=== PATIENT | female | born 1950 | race Caucasian/White ===

== ENCOUNTER → 2019-01-29 | Outpatient (CLI) | payer MEDICARE ==
[~2019-01-29] MED LIST: ACYC400; CYCL10; ESTR1; HYDACE5 PO; HYDCHL25; IBUP600 PO; IBUP800 PO; LEVFLO500; LEVSOD100; LEVSOD75; LISI10 PO; MELO7.5; METF500; METF500C; METO100; METO100ER; NAPR500 PO; OMEP20ER; OXYACE5T PO; PROM25 PO; RXCYCL10 PO
== END ==
LOC: LAB SHORT 12:07 → LAB EV 12:07
DX: N39.0 Urinary tract infection, site not specified (principal)
CPT/HCPCS: 87086

== ENCOUNTER → 2019-10-25 | Outpatient (CLI) | payer MEDICARE ==
[2019-10-26 17:42] LABS: Campylobacter Sp Not Detected (NOT DETECT)
[2019-10-26 17:43] LABS: Adenovirus F 40/41 Not Detected (NOT DETECT); Astrovirus Not Detected (NOT DETECT); Cryptosporidium Not Detected (NOT DETECT); Cyclospora Cayetanensis Not Detected (NOT DETECT); E. Coli O157 Not Detected (NOT DETECT); Entamoeba Histolytica Not Detected (NOT DETECT); Enteroaggregative E. coli-EAEC Not Detected (NOT DETECT); Enteropathogenic E. coli-EPEC Not Detected (NOT DETECT); Enterotoxigenic E. coli-ETEC Not Detected (NOT DETECT); Giardia Lamblia Not Detected (NOT DETECT); Norovirus GI/GII Not Detected (NOT DETECT); Plesiomonas Shigelloides Not Detected (NOT DETECT); Rotavirus A Not Detected (NOT DETECT); Salmonella Sp Not Detected (NOT DETECT); Sapovirus Not Detected (NOT DETECT); Shiga Toxin-prod E. coli-STEC Not Detected (NOT DETECT); Shigella/Enteroin E. coli-EIEC Not Detected (NOT DETECT); Vibrio Cholerae Not Detected (NOT DETECT); Vibrio Sp Not Detected (NOT DETECT); Yersinia Enterocolitica Not Detected (NOT DETECT)
[2019-10-27 07:00] LABS: Stool Occult Bld Immuno 1 Negative (NEGATIVE)
== END ==
LOC: LAB EV 21:20
PROVIDERS: Nurse Practitioner Family
DX: R19.7 Diarrhea, unspecified (principal)
CPT/HCPCS: 0097U; 82274

== ENCOUNTER 2022-01-23 05:57 | Day surgery (SDC) | payer MEDICARE ==
[~2022-01-23] VITALS: Ht 160 cm; Wt 90.5 kg
[~2022-01-23 05:57] MED LIST changes: +ACYC400 PO; +ESTRADIOL0.5 MG PO; +EUTHYROX125 MC1 PO; +GABA300 PO; +GLIP10 PO; +HYDCHL25 PO; +LISI20 PO; -METF500; +METF500 PO; -METO100ER; +METO100ER PO; +OMEP20ER PO; +OZEMPIC1 MG/0.72 SC; +PREDNISONE ACETATE LEFTEYE; +ZIRGAN5 GM LEFTEYE; +ZOCOR20 MG PO
--- NOTE | 2022-01-23 06:46 | NUR ---
pt admitted to [facility]. agrees with planned surgery. lung sounds clear.
--- NOTE | 2022-01-23 10:37 | NUR ---
POD 0 LEFT TOTAL KNEE PATIENT CAME BACK TODAY 01/23/22 AT 1020. PATIENT IS ALERT AND ORIENTED X4. PATIENT HAS A SLIGHTLY LOWER BP BUT HAS FLUIDS RUNNING. OTHERWISE HER VS ARE WNL AND ON RA. PATIENT DENIES PAIN AT THIS TIME SINCE SHE HAD A SPINAL DONE DURING PROCEDURE. PATIENT IS AT DERMATOME L1 FOR HER SPINAL. HER LEFT KNEE HAS AN JERAMIE WRAP AND POLAR PACK IN PLACE THAT IS C/D/I. SHE IS TOLERATING SMALL AMOUNTS OF PO INTAKE AT THIS TIME. CALL LIGHT WITHIN REACH. PATIENTS FAMILY IS AT BEDSIDE.
--- NOTE | 2022-01-23 17:21 | NUR ---
SHIFT SUMMARY: POD 0 LEFT TOTAL KNEE NO SIGNIFICANT CHANGES SINCE POST OP. PATIENT WAS ABLE TO WORK WITH PT TODAY AND IS A SBA WITH FWW AND GAIT BELT. PATIENT IS VOIDING AND TOLERATING PO INTAKE. PAIN IS MANAGED WITH 1 JOSSIE AT THIS TIME AND IV TORADOL. THE PLAN IS TO WORK WITH PT AGAIN TOMORROW AND POSSIBLE DISCHARGE HOME TOMORROW.
--- NOTE | 2022-01-24 03:17 | NUR ---
PT IS A&OX4, AMBULATES TO BR WITH FWW AND IS ABLE TO MAKE NEED KNOWN. POST OP DAY 1 FOR L TKA. PAIN CONTROLLED WITH JOSSIE 5MG. PT ABLE TO VIOD THIS SHIFT WITH NO ISSUES. TOLERATING REGULAR DIET AND PO FLUIDS. POSSIBLE D/C THIS AM. WILL CONTINUE TO MONITOR THIS PT
[2022-01-24 03:46] LABS: BASOPHILS ABSOLUTE AUTO 0.01 K/mm3 (0.00-0.23); BASOPHILS PERCENT AUTO 0 % (0-2); EOSINOPHILS PERCENT AUTO 0 % (0-6); Hemoglobin 10.6 g/dL (11.5-16.0); IMMATURE GRAN ABSOLUTE AUTO 0.04 K/mm3 (0.00-0.10); IMMATURE GRAN PERCENT AUTO 0 % (0-1); LYMPHOCYTES PERCENT AUTO 10 % (21-46); MONOCYTES PERCENT AUTO 4 % (4-13); Mean Corpuscular HGB 30.2 pg (26.0-34.0); Mean Corpuscular HGB Conc 33.1 g/dL (31.5-36.5); Mean Corpuscular Volume 91 fL (80-100); Mean Platelet Volume 10.6 fL (9.1-12.4); NEUTROPHILS ABSOLUTE AUTO 9.78 K/mm3 (1.96-9.15); NEUTROPHILS PERCENT AUTO 86 % (41-73); Platelet Count 236 K/mm3 (150-400); RDW Coefficient Variation 13.1 % (11.7-14.2); RDW Standard Deviation 42.6 fL (35.1-46.3); Red Blood Cell Count 3.51 M/mm3 (3.80-5.20); White Blood Cell Count 11.43 K/mm3 (4.00-11.30)
[2022-01-24 04:02] LABS: Bun/Creatinine Ratio 20.5 (12.0-20.0); Creatinine, Blood 1.12 mg/dL (0.40-1.00); Potassium, Blood 4.5 mmol/L (3.5-5.5)
[2022-01-24] MEDS ORDERED: ASPI81CH PO (09:58)
[2022-01-24] MEDS ORDERED: Percocet 5-3251 EACH PO (09:58)
--- NOTE | 2022-01-24 10:59 | NUR ---
DISCHARGE NOTE: PATIENT AND DAUGHTER WERE EDUCATED ON DISCHARGE INSTRUCTIONS. BOTH VERBALIZED UNDERSTANDING OF INSTRUCTIONS. HARD PERSCRIPTIONS ARE IN INSTRUCTIONS FOLDER. PATIENT IS ALERT AND ORIENTED X4. VS ARE WNL AND IS ON RA. PAIN IS MANAGED WITH PO PAIN MEDS. LEFT KNEE HAS JERAMIE WRAP THAT IS C/D/I. DENIES NUMBNESS AND TINGLING. SHE IS A SBA WITH FWW AND GAIT BELT. PATIENT IS DRESSED AND ITEMS IN THE ROOM GATHERED. AWAITING FOR PATIENTS RIDE TO TAKE HER HOME.
--- NOTE | 2022-01-24 12:02 | NUR ---
PATIENT JUST WAS WHEELCHAIRED OUT TO CAR TO BE TAKEN HOME.
--- NOTE | 2022-01-24 12:07 | NUR ---
Pt. is sitting up and waiting for ride having been discharged. Pt. is known to this babysitter. Pts. daughter is present. Re-established rapport. Pt. has no concerns. Prayed for Pt. to have a full and complete recovery. Pt. and daughter verbalized gratitude for the spiritual care visit.
== END 2022-01-24 12:01 | disposition home or self-care (01) ==
LOC: ORSCMMR 05:57 → ORD 07:30 → ORSCMMR 07:30 → SURS 10:04 → ORSCMMR 01-24 12:01
PROVIDERS: Orthopaedic Surgery
PROC: 0SRD0JA Replacement of Left Knee Joint with Synthetic Substitute, Uncemented, Open Approach (ICD-10-PCS; principal; 2022-01-23 07:30)
DX: M17.0 Bilateral primary osteoarthritis of knee (principal); M10.9 Gout, unspecified; E11.22 Type 2 diabetes mellitus with diabetic chronic kidney disease; I12.9 Hypertensive chronic kidney disease with stage 1 through stage 4 chronic kidney disease, or unspecified chronic kidney disease; N18.9 Chronic kidney disease, unspecified; K21.9 Gastro-esophageal reflux disease without esophagitis; E78.5 Hyperlipidemia, unspecified; Z79.84 Long term (current) use of oral hypoglycemic drugs; Z79.899 Other long term (current) drug therapy; E66.9 Obesity, unspecified; Z68.35 Body mass index [BMI] 35.0-35.9, adult
CPT/HCPCS: 36415; 73560-LT; 80048; 82947; 85025; 97110; 97116; 97161; 97530; A9270; C1776; J0171; J0690; J0735; J1100; J1170; J1815; J1885; J2250; J2370; J2405; J2704; J2795; J3010; J7120

== ENCOUNTER 2022-04-24 09:32 | Day surgery (SDC) | payer MEDICARE ==
[~2022-04-24] VITALS: Ht 160 cm; Wt 83.1 kg
[~2022-04-24 09:32] MED LIST changes: +ASPI81CH PO; +Percocet 5-3251 EACH PO
--- NOTE | 2022-04-24 15:34 | NUR ---
PATIENT ARRIVED TO UNIT VIA BED APPROX 1515. VSS ON RA, LUNGS CLEAR. AQUACEL, JERAMIE WRAP & POLAR PACK IN PLACE TO R KNEE, C/D/I. PATIENT UNABLE TO WIGGLE TOES AT THIS TIME, CAP REFILL WNL, PULSES STRONG. SENSATION TO MID THIGH. A&O X4. ORIENTED TO ROOM & CALL LIGHT.
--- NOTE | 2022-04-24 16:10 | NUR ---
04/24/22 1610 Tena Elmore VERIFICATIONS: EDIT CHART.
--- NOTE | 2022-04-24 18:05 | NUR ---
Pt. is awake in bed and welcomes my visit. Daughteris present. Pt. is pleasant and there is no visible sign of pain or nausea as there had been during her last knee replacement. Re-establish rapport, and explored issues of bhavesh and belief. Prayed with Pt. Pt. and daughter veerbalize gratitude for the spiritual care visit.
--- NOTE | 2022-04-24 18:41 | NUR ---
SHIFT SUMMARY NO ACUTE CHANGES SINCE ARRIVAL TO UNIT, VSS ON RA. PATIENT HAD SPINAL, DENIES PAIN, STILL NO SENSATION TO FEET, UNABLE TO WIGGLE TOES BUT "FEET TWITCH EVERY NOW AND THEN", PER PATIENT. TOLERATING PO DIET WELL, REPORTS SLIGHT NAUSEA AND REQUESTED MEDICATION "JUST TO BE SAFE". AWAITING POST OP VOID. CALLS APPROPRIATELY, WILL REPORT TO ONCOMING RN.
--- NOTE | 2022-04-25 04:37 | NUR ---
SHIFT SUMMARY NO ACUTE CHANGES. RIGHT KNEE DRESSING REMAINS CDI WITH ICE IN PLACE. UP WITH 1 SBA USING FWW + GB. 2 ROXICODONE/TYLENOL/TORADOL FOR PAIN MANAGEMENT. VOIDING SPONTANEOUSLY. CALL LIGHT WITHIN REACH.
[2022-04-25 04:49] LABS: BASOPHILS ABSOLUTE AUTO 0.01 K/mm3 (0.00-0.23); BASOPHILS PERCENT AUTO 0 % (0-2); EOSINOPHILS PERCENT AUTO 0 % (0-6); Hematocrit 32.4 % (33.0-51.0); Hemoglobin 10.7 g/dL (11.5-16.0); IMMATURE GRAN ABSOLUTE AUTO 0.04 K/mm3 (0.00-0.10); IMMATURE GRAN PERCENT AUTO 0 % (0-1); LYMPHOCYTES ABSOLUTE AUTO 1.05 K/mm3 (0.84-5.20); LYMPHOCYTES PERCENT AUTO 10 % (21-46); MONOCYTES ABSOLUTE AUTO 0.54 K/mm3 (0.16-1.47); MONOCYTES PERCENT AUTO 5 % (4-13); Mean Corpuscular HGB 29.8 pg (26.0-34.0); Mean Corpuscular Volume 90 fL (80-100); Mean Platelet Volume 11.3 fL (9.1-12.4); NEUTROPHILS ABSOLUTE AUTO 9.07 K/mm3 (1.96-9.15); NEUTROPHILS PERCENT AUTO 85 % (41-73); Platelet Count 190 K/mm3 (150-400); RDW Coefficient Variation 13.1 % (11.7-14.2); RDW Standard Deviation 43.3 fL (35.1-46.3); Red Blood Cell Count 3.59 M/mm3 (3.80-5.20); White Blood Cell Count 10.71 K/mm3 (4.00-11.30)
[2022-04-25 05:42] LABS: Bun/Creatinine Ratio 24.8 (12.0-20.0); Calcium, Blood 8.6 mg/dL (8.5-10.1); Creatinine, Blood 0.97 mg/dL (0.40-1.00); Potassium, Blood 4.4 mmol/L (3.5-5.5)
[2022-04-25] MEDS ORDERED: Percocet 5-3251 EACH PO (09:53)
[2022-04-25] MEDS ORDERED: ASPI81CH PO (09:53)
--- NOTE | 2022-04-25 10:40 | NUR ---
DISCHARGE PT HAS CLEARED THERAPY. PAIN WELL CONTROLLED. EATING, DRINKING, & VOIDING WELL. DRSGS, SCRIPT, & POLAR PACK SENT w/ PT. ESCORTED OUT VIA W/C.
== END 2022-04-25 10:40 | disposition home or self-care (01) ==
LOC: ORSCMMR 09:32 → SURS 15:16 → ORSCMMR 04-25 10:40 → SURS 04-25 10:40
PROVIDERS: Orthopaedic Surgery
PROC: 0SRC0JA Replacement of Right Knee Joint with Synthetic Substitute, Uncemented, Open Approach (ICD-10-PCS; principal; 2022-04-24 11:00)
DX: M17.11 Unilateral primary osteoarthritis, right knee (principal); Z96.652 Presence of left artificial knee joint; K21.9 Gastro-esophageal reflux disease without esophagitis; E78.5 Hyperlipidemia, unspecified; E11.22 Type 2 diabetes mellitus with diabetic chronic kidney disease; I12.9 Hypertensive chronic kidney disease with stage 1 through stage 4 chronic kidney disease, or unspecified chronic kidney disease; N18.9 Chronic kidney disease, unspecified; Z79.84 Long term (current) use of oral hypoglycemic drugs; Z79.899 Other long term (current) drug therapy
CPT/HCPCS: 36415; 73560-RT; 80048; 82947; 85025; 97110; 97161; A9270; C1776; J0171; J0690; J0735; J1100; J1815; J1885; J2250; J2405; J2704; J2795; J3010; J7120

== ENCOUNTER → 2022-09-17 | Outpatient (CLI) | payer MEDICARE | END | disposition home or self-care (01) | LOC: LAB SHORT 07:43 | DX: B35.1 Tinea unguium (principal) | CPT/HCPCS: 88305; 88312 ==

== ENCOUNTER 2023-05-09 13:18 | Emergency (ER) | payer MEDICARE ==
[~2023-05-09] VITALS: Ht 160 cm; Wt 78.9 kg
[2023-05-09 13:37] VITALS: BP 149/85
[2023-05-09 14:29] LABS: BASOPHILS ABSOLUTE AUTO 0.04 K/mm3 (0.00-0.23); BASOPHILS PERCENT AUTO 0 % (0-2); EOSINOPHILS ABSOLUTE AUTO 0.03 K/mm3 (0.00-0.68); EOSINOPHILS PERCENT AUTO 0 % (0-6); Hemoglobin 13.7 g/dL (11.5-16.0); IMMATURE GRAN ABSOLUTE AUTO 0.05 K/mm3 (0.00-0.10); IMMATURE GRAN PERCENT AUTO 0 % (0-1); LYMPHOCYTES ABSOLUTE AUTO 1.86 K/mm3 (0.84-5.20); LYMPHOCYTES PERCENT AUTO 16 % (21-46); MONOCYTES ABSOLUTE AUTO 1.04 K/mm3 (0.16-1.47); MONOCYTES PERCENT AUTO 9 % (4-13); Mean Corpuscular HGB 31.1 pg (26.0-34.0); Mean Corpuscular HGB Conc 34.3 g/dL (31.5-36.5); Mean Corpuscular Volume 91 fL (80-100); Mean Platelet Volume 10.5 fL (9.1-12.4); NEUTROPHILS ABSOLUTE AUTO 8.69 K/mm3 (1.96-9.15); NEUTROPHILS PERCENT AUTO 74 % (41-73); Platelet Count 273 K/mm3 (150-400); RDW Coefficient Variation 11.6 % (11.7-14.2); RDW Standard Deviation 38.8 fL (35.1-46.3); White Blood Cell Count 11.71 K/mm3 (4.00-11.30)
[2023-05-09 14:47] LABS: Albumin, Blood 3.4 g/dL (3.4-5.0); Albumin/Globulin Ratio 0.7 (0.8-1.8); Bilirubin, Total 0.4 mg/dL (0.1-1.0); Bun/Creatinine Ratio 18.8 (12.0-20.0); Calcium, Blood 9.2 mg/dL (8.5-10.1); Creatinine, Blood 0.64 mg/dL (0.40-1.00); Globulin, Blood 4.7 g/dL (2.2-4.0); Potassium, Blood 3.9 mmol/L (3.5-5.5); Total Protein, Blood 8.1 g/dL (6.4-8.2)
[2023-05-09] MEDS ORDERED: Naprosyn500 MG PO (18:06)
[2023-05-09] MEDS ORDERED: Norco 5-325 Ta1 EACH PO (18:06)
== END 2023-05-09 19:24 | disposition home or self-care (01) ==
LOC: ER 13:18
PROVIDERS: Physician Assistant
DX: M10.9 Gout, unspecified (principal); R07.9 Chest pain, unspecified; I10 Essential (primary) hypertension; E11.9 Type 2 diabetes mellitus without complications; E07.9 Disorder of thyroid, unspecified; Z79.84 Long term (current) use of oral hypoglycemic drugs; Z79.899 Other long term (current) drug therapy
CPT/HCPCS: 71045; 71260; 80053; 84484; 85025; 85379; 93005; 93010; 96374-59; 99284-25; A9270; J1885; Q9967

== ENCOUNTER 2023-06-14 09:05 | Day surgery (SDC) | payer MEDICARE ==
[~2023-06-14 09:05] MED LIST changes: -LISI20 PO; +LISI5 PO; +Naprosyn500 MG PO; +Norco 5-325 Ta1 EACH PO
[2023-06-14 14:47] VITALS: BP 151/63
[2023-06-14] MEDS ORDERED: METFORMIN HCL500 M3 PO (17:19)
[2023-06-14] MEDS ORDERED: METO100 PO (17:20)
[2023-06-14] MEDS ORDERED: CENTRUM SILVER1 EAC2 PO (17:21)
[2023-06-14] MEDS ORDERED: ALLO100 PO (17:21)
[2023-06-14] MEDS ORDERED: FURO20 PO (17:22)
[2023-06-14] MEDS ORDERED: PRED FORTE5 ML LEFTEYE (17:22)
[2023-06-14] MEDS ORDERED: FLUTICASONE P15.8 M1 (17:24)
== END 2023-06-14 16:40 | disposition home or self-care (01) ==
LOC: ATC 09:05
DX: E83.42 Hypomagnesemia (principal); I12.9 Hypertensive chronic kidney disease with stage 1 through stage 4 chronic kidney disease, or unspecified chronic kidney disease; N18.32 Chronic kidney disease, stage 3b; K21.9 Gastro-esophageal reflux disease without esophagitis; E03.9 Hypothyroidism, unspecified
CPT/HCPCS: 96365; 96366; J3475

== ENCOUNTER 2023-06-20 01:04 | Day surgery (SDC) | payer MEDICARE ==
[~2023-06-20 01:04] MED LIST changes: +ALLO100 PO; +CENTRUM SILVER1 EAC2 PO; +FLUTICASONE P15.8 M1; +FURO20 PO; +METFORMIN HCL500 M3 PO; +METO100 PO; +PRED FORTE5 ML LEFTEYE
[2023-06-20 14:30] VITALS: BP 143/66
== END 2023-06-20 16:32 | disposition home or self-care (01) ==
LOC: ATC 01:04
DX: E83.42 Hypomagnesemia (principal); K21.9 Gastro-esophageal reflux disease without esophagitis; E03.9 Hypothyroidism, unspecified; E11.40 Type 2 diabetes mellitus with diabetic neuropathy, unspecified; E11.22 Type 2 diabetes mellitus with diabetic chronic kidney disease; N18.32 Chronic kidney disease, stage 3b; I12.9 Hypertensive chronic kidney disease with stage 1 through stage 4 chronic kidney disease, or unspecified chronic kidney disease
CPT/HCPCS: 96365; 96366; J3475

== ENCOUNTER → 2024-05-13 | Outpatient (CLI) | payer MEDICARE ==
[~2024-05-13] MED LIST changes: +BACTRIM DS TAB1 EAC1 PO; +CEPH500 PO; +FAMO40 PO; +LEVOTHYROXINE125 MC9 PO; +ONDA4 PO; +OZEMPIC1 MG/0.72 INJ
== END | disposition home or self-care (01) ==
LOC: LAB 13:30 → LAB SHORT 13:30
DX: R30.0 Dysuria (principal)
CPT/HCPCS: 87077; 87086; 87186

== ENCOUNTER → 2024-06-29 | Outpatient (CLI) | payer MEDICARE | LOC: LAB 13:09 → LAB SHORT 13:09 | DX: R30.0 Dysuria (principal) | CPT/HCPCS: 87077; 87086; 87186 ==

== ENCOUNTER 2024-08-27 13:17 | Emergency (ER) | payer MEDICARE ==
[~2024-08-27] VITALS: Ht 157.5 cm; Wt 83.9 kg
[2024-08-27 14:21] LABS: Albumin, Blood 3.7 g/dL (3.4-5.0); Bilirubin, Total 0.4 mg/dL (0.1-1.0); Bun/Creatinine Ratio 21.9 (12.0-20.0); Calcium, Blood 9.1 mg/dL (8.5-10.1); Creatinine, Blood 0.78 mg/dL (0.40-1.00); Globulin, Blood 3.6 g/dL (2.2-4.0); Potassium, Blood 4.3 mmol/L (3.5-5.5); Total Protein, Blood 7.3 g/dL (6.4-8.2)
[2024-08-27 14:25] LABS: BASOPHILS ABSOLUTE AUTO 0.05 K/mm3 (0.00-0.23); BASOPHILS PERCENT AUTO 1 % (0-2); EOSINOPHILS ABSOLUTE AUTO 0.18 K/mm3 (0.00-0.68); EOSINOPHILS PERCENT AUTO 3 % (0-6); Hematocrit 38.5 % (33.0-51.0); IMMATURE GRAN ABSOLUTE AUTO 0.01 K/mm3 (0.00-0.10); IMMATURE GRAN PERCENT AUTO 0 % (0-1); LYMPHOCYTES ABSOLUTE AUTO 1.79 K/mm3 (0.84-5.20); LYMPHOCYTES PERCENT AUTO 30 % (21-46); MONOCYTES ABSOLUTE AUTO 0.46 K/mm3 (0.16-1.47); MONOCYTES PERCENT AUTO 8 % (4-13); Mean Corpuscular HGB 30.9 pg (26.0-34.0); Mean Corpuscular HGB Conc 33.8 g/dL (31.5-36.5); Mean Corpuscular Volume 91 fL (80-100); Mean Platelet Volume 10.9 fL (9.1-12.4); NEUTROPHILS ABSOLUTE AUTO 3.48 K/mm3 (1.96-9.15); NEUTROPHILS PERCENT AUTO 58 % (41-73); Platelet Count 232 K/mm3 (150-400); RDW Coefficient Variation 12.7 % (11.7-14.2); RDW Standard Deviation 42.6 fL (35.1-46.3); Red Blood Cell Count 4.21 M/mm3 (3.80-5.20); White Blood Cell Count 5.97 K/mm3 (4.00-11.30)
[2024-08-27 17:01] VITALS: BP 180/90
[2024-08-27] MEDS ORDERED: Ketorolac Tromethamine 15mg Vial IV ONE (17:45)
[2024-08-27] MEDS ORDERED: NS 1,000 ML IV SCH (17:45)
[2024-08-27 17:59] LABS: Source, Urine Clean Catch
[2024-08-27 18:09] LABS: Appearance, Urine Clear (Clear); Bilirubin, Urine Neg (Neg); Blood, Urine Neg (Neg); Color, Urine Yellow (P-Yellow); Glucose Qualitative, Urine Neg (Neg); Ketones, Urine Neg (Neg); Leukocyte Esterase, Urine 2+ (Neg); Nitrite, Urine Neg (Neg); Protein, Urine 1+ (Neg); Urobilinogen, Urine NORM (Normal); pH, Urine 6.5 (5.0-8.0)
[2024-08-27 18:26] LABS: Bacteria Many /hpf; Red Blood Cells, Urine 0-2 /hpf (0-2); Squamous Epithelial Cells Few /hpf (Few)
[2024-08-27] MEDS ORDERED: Phenazopyridine HCl 100 MG Tab PO ONE (18:40)
[2024-08-27] MEDS ORDERED: Trimethoprim/Sulfamethoxazole DS Tab PO ONE (18:40)
[2024-08-27] MEDS ORDERED: CEPH500 PO (18:42)
[2024-08-27] MEDS ORDERED: Pyridium100 MG PO (18:43)
[2024-08-27] MEDS ORDERED: Cephalexin Monohydrate 500 MG Cap PO ONE (18:45)
== END 2024-08-27 19:02 | disposition home or self-care (01) ==
LOC: ER 13:17
PROVIDERS: Physician Assistant; Student in an Organized Health Care Education/Training Program
DX: N39.0 Urinary tract infection, site not specified (principal); I10 Essential (primary) hypertension; E11.9 Type 2 diabetes mellitus without complications; Z79.84 Long term (current) use of oral hypoglycemic drugs; Z79.899 Other long term (current) drug therapy
CPT/HCPCS: 71046; 80053; 81001; 83880; 84484; 85025; 93005; 93010; 96361; 96374; 99284-25; A9270; J1885; J7030

== ENCOUNTER 2024-09-14 15:30 | Observation (INO) | payer MEDICARE ==
[~2024-09-14] VITALS: Ht 157.5 cm; Wt 86.2 kg
[~2024-09-14 15:30] MED LIST changes: +ATOR40TA PO; +Prinivil10 MG PO; +Pyridium100 MG PO
[2024-09-14 16:17] LABS: BASOPHILS ABSOLUTE AUTO 0.05 K/mm3 (0.00-0.23); BASOPHILS PERCENT AUTO 1 % (0-2); EOSINOPHILS ABSOLUTE AUTO 0.14 K/mm3 (0.00-0.68); EOSINOPHILS PERCENT AUTO 2 % (0-6); Hematocrit 41.2 % (33.0-51.0); Hemoglobin 13.8 g/dL (11.5-16.0); IMMATURE GRAN ABSOLUTE AUTO 0.03 K/mm3 (0.00-0.10); IMMATURE GRAN PERCENT AUTO 0 % (0-1); LYMPHOCYTES ABSOLUTE AUTO 2.14 K/mm3 (0.84-5.20); LYMPHOCYTES PERCENT AUTO 29 % (21-46); MONOCYTES ABSOLUTE AUTO 0.45 K/mm3 (0.16-1.47); MONOCYTES PERCENT AUTO 6 % (4-13); Mean Corpuscular HGB 30.8 pg (26.0-34.0); Mean Corpuscular HGB Conc 33.5 g/dL (31.5-36.5); Mean Corpuscular Volume 92 fL (80-100); Mean Platelet Volume 10.7 fL (9.1-12.4); NEUTROPHILS ABSOLUTE AUTO 4.66 K/mm3 (1.96-9.15); NEUTROPHILS PERCENT AUTO 62 % (41-73); Platelet Count 238 K/mm3 (150-400); RDW Coefficient Variation 12.5 % (11.7-14.2); RDW Standard Deviation 42.5 fL (35.1-46.3); Red Blood Cell Count 4.48 M/mm3 (3.80-5.20); White Blood Cell Count 7.47 K/mm3 (4.00-11.30)
[2024-09-14 16:55] LABS: Albumin, Blood 3.9 g/dL (3.4-5.0); Bilirubin, Total 0.3 mg/dL (0.1-1.0); Bun/Creatinine Ratio 30.8 (12.0-20.0); Calcium, Blood 9.7 mg/dL (8.5-10.1); Creatinine, Blood 0.91 mg/dL (0.40-1.00); Total Protein, Blood 7.9 g/dL (6.4-8.2)
[2024-09-14] MEDS ORDERED: DiphenhydrAMINE HCl 50 MG/ML 1ML Vial IV ONE (17:40)
[2024-09-14] MEDS ORDERED: Labetalol HCL 5 MG/ML 4ML Injection (Single Dose) IV ONE (17:40)
[2024-09-14] MEDS ORDERED: NS 1,000 ML IV SCH (17:40)
[2024-09-14] MEDS ORDERED: Metoclopramide HCl 5MG / ML 2ML Vial IV ONE (17:40)
[2024-09-14 17:57] LABS: Magnesium, Blood 1.4 mg/dL (1.6-2.4); Phosphorus, Blood 3.2 mg/dL (2.5-4.9)
[2024-09-14 19:58] LABS: Source, Urine Clean Catch
[2024-09-14] MEDS ORDERED: Ketorolac Tromethamine 15mg Vial IV ONE (20:00)
[2024-09-14 20:01] LABS: Appearance, Urine Clear (Clear); Bilirubin, Urine Neg (Neg); Blood, Urine Neg (Neg); Glucose Qualitative, Urine Neg (Neg); Ketones, Urine Neg (Neg); Leukocyte Esterase, Urine 1+ (Neg); Nitrite, Urine Neg (Neg); Protein, Urine Neg (Neg); Specific Gravity, Urine 1.005 (1.003-1.022); Urobilinogen, Urine NORM (Normal)
[2024-09-14 20:07] LABS: Color, Urine Pale Yellow (P-Yellow)
[2024-09-14 20:08] LABS: Bacteria Few /hpf; Red Blood Cells, Urine 0-2 /hpf (0-2); Squamous Epithelial Cells Few /hpf (Few)
[2024-09-14] MEDS ORDERED: Metoprolol Tartrate 50 MG Tab PO ONE (20:10)
[2024-09-14] MEDS ORDERED: Lisinopril 5 MG Tab PO ONE (20:10)
[2024-09-14] MEDS ORDERED: FLU VACC TS2024-25(6MOS UP)/PF 45 MCG/0.5 ML SYRINGE IM ONE (22:10)
[2024-09-14] MEDS ORDERED: Ondansetron HCl 2 MG / ML 2ML Vial IV PRN (22:15)
[2024-09-14] MEDS ORDERED: Acetaminophen 325 MG TABLET PO PRN (22:15)
[2024-09-14] MEDS ORDERED: CefTRIAXone Sodium 1,000 MG in NS 100 ML IV SCH (22:21)
[2024-09-14] MEDS ORDERED: Magnesium Sulf 2 GM/Water 50ML 50 ML IV ONE (22:25)
[2024-09-15 03:42] LABS: BASOPHILS ABSOLUTE AUTO 0.04 K/mm3 (0.00-0.23); BASOPHILS PERCENT AUTO 1 % (0-2); EOSINOPHILS ABSOLUTE AUTO 0.23 K/mm3 (0.00-0.68); EOSINOPHILS PERCENT AUTO 3 % (0-6); Hematocrit 36.6 % (33.0-51.0); Hemoglobin 12.2 g/dL (11.5-16.0); IMMATURE GRAN ABSOLUTE AUTO 0.02 K/mm3 (0.00-0.10); IMMATURE GRAN PERCENT AUTO 0 % (0-1); LYMPHOCYTES ABSOLUTE AUTO 2.61 K/mm3 (0.84-5.20); LYMPHOCYTES PERCENT AUTO 34 % (21-46); MONOCYTES ABSOLUTE AUTO 0.59 K/mm3 (0.16-1.47); MONOCYTES PERCENT AUTO 8 % (4-13); Mean Corpuscular HGB 30.4 pg (26.0-34.0); Mean Corpuscular HGB Conc 33.3 g/dL (31.5-36.5); Mean Corpuscular Volume 91 fL (80-100); Mean Platelet Volume 10.5 fL (9.1-12.4); NEUTROPHILS ABSOLUTE AUTO 4.11 K/mm3 (1.96-9.15); NEUTROPHILS PERCENT AUTO 54 % (41-73); Platelet Count 214 K/mm3 (150-400); RDW Coefficient Variation 12.7 % (11.7-14.2); RDW Standard Deviation 41.8 fL (35.1-46.3); Red Blood Cell Count 4.01 M/mm3 (3.80-5.20)
[2024-09-15 04:10] LABS: Alanine Aminotransfer (ALT/SGP 12 U/L (12-78); Albumin, Blood 3.4 g/dL (3.4-5.0); Alk Phos 56 U/L (50-136); Anion Gap 11 mmol/L (3-11); Aspartate Aminotrans (AST/SGOT 25 U/L (12-37); Bilirubin, Total 0.2 mg/dL (0.1-1.0); Blood Urea Nitrogen 28 mg/dL (8-24); Bun/Creatinine Ratio 28.8 (12.0-20.0); CHOL/HDL RATIO 2.5; CO2, Blood 24 mmol/L (21-32); Calcium, Blood 8.9 mg/dL (8.5-10.1); Chloride, Blood 109 mmol/L (98-108); Cholesterol 98 mg/dL (50-200); Creatinine, Blood 0.97 mg/dL (0.40-1.00); Globulin, Blood 3.4 g/dL (2.2-4.0); Glomerular Filtration Rate 61 (60-); Glucose, Blood 121 mg/dL (70-99); HDL Cholesterol 39 mg/dL (>39); LDL/HDL RATIO 0.5; Low Density Lipoprotein Chol 19 mg/dL (0-110); Magnesium, Blood 2.1 mg/dL (1.6-2.4); Potassium, Blood 4.2 mmol/L (3.5-5.5); Sodium, Blood 140 mmol/L (136-145); Total Protein, Blood 6.8 g/dL (6.4-8.2); Triglycerides 200 mg/dL (30-160); Very Low Density Lipoprot Chol 40 mg/dL (6-32)
[2024-09-15] MEDS ORDERED: Insulin Human Lispro 100 Units/ML 3ML Syringe SC SCH (07:30)
[2024-09-15] MEDS ORDERED: Metoprolol Tartrate 50 MG Tab PO SCH (09:00)
[2024-09-15] MEDS ORDERED: Lactobacil 2-S.Thermo-Bifido 1 1 Cap PO SCH (09:00)
[2024-09-15] MEDS ORDERED: Atorvastatin 40 MG Tab PO SCH (09:00)
[2024-09-15] MEDS ORDERED: Aspirin 81 MG Chew PO SCH (09:00)
[2024-09-15] MEDS ORDERED: Lisinopril 5 MG Tab PO SCH (09:00)
[2024-09-15] MEDS ORDERED: LORazepam 2 MG/ML 1ML Injection IV ONE (10:05)
[2024-09-15] MEDS ORDERED: PRED FORTE5 ML LEFTEYE (10:16)
--- NOTE | 2024-09-15 10:38 | NUR ---
Pt. is in ED when she welcomes this incinerator attendant. Pt. is known to this incinerator attendant from the community. facilitated a life review, and Pt. verbalizes her health issues from the the past several days. Listen with empathy and a calming presence. 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 Imaging staff then arrived. Prayed with Pt. Pt. verbalized gratitude for the spiritual care visit. Will parvinintue to be be available tot he Pt. and family.
[2024-09-15 12:47] VITALS: BP 177/77
[2024-09-15] MEDS ORDERED: ZIRGAN5 GM BOTHEYES (13:01)
[2024-09-15 14:35] VITALS: BP 152/76
[2024-09-15] MEDS ORDERED: Ibuprofen 600 MG Tab PO PRN (15:50)
[2024-09-15 16:58] VITALS: BP 170/74
[2024-09-15 19:41] VITALS: BP 186/84
[2024-09-15] MEDS ORDERED: NS 250 ML IV PRN (20:00)
[2024-09-15] MEDS ORDERED: Melatonin 5 MG Tablet PO PRN (20:15)
--- NOTE | 2024-09-15 20:15 | NUR ---
NEW T-ORDER RECEIVED FROM THE ON-CALL HOSPITALIST BRANDY.MARAL: -MELATONIN 5MG QHS, PRN. ENTERED TO [employer], SEE EMAR. NO ADDITIONAL NEW ORDERS AT THIS TIME.
[2024-09-16 02:41] VITALS: BP 154/90
--- NOTE | 2024-09-16 04:33 | NUR ---
SHIFT SUMMARY PT IS A&O X4, PLEASANT AND COOPERATIVE WITH CARE. TEARFUL AT HS. 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 FAMILY NOW TAKING CARE OF PT'S . PT AMBULATES INDEPENDENTLY WITHIN THE HOSPITAL ROOM. NEW IV @ LEFT HAND, IV ABX INFUSED ORDERED. PT C/O H/A AND BACK ACHE, PRN PO TYLENOL AND IBUPROFEN ADMINISTERED X1. HS B. PT REPORTS DOES NOT TAKE INSULIN AT HOME. PT C/O NOT GETTING ANY SLEEP SINCE @ER. NEW ORDER FOR MELATONIN 5MG QHS PRN RECEIVED FROM THE ON-CALL HOSPITALIST. PT IS ON RA, TAKES MEDICATIONS WHOLE WITH FLUIDS. PT REPORTS THAT SX ARE RESOLVED FROM THE VISION ISSUES AND DENIES NUMBNESS AND TINGLING, STRENGHT IS EQUAL UE/LE'S. PERRLA. NO ACUTE EVENTS DURING THIS SHIFT. BED AT THE LOWEST POSITION, CALL LIGHT WITHIN REACH. PT IS ABLE TO MAKE HER NEEDS KNOWN.
[2024-09-16 05:31] LABS: BASOPHILS ABSOLUTE AUTO 0.05 K/mm3 (0.00-0.23); BASOPHILS PERCENT AUTO 1 % (0-2); EOSINOPHILS ABSOLUTE AUTO 0.28 K/mm3 (0.00-0.68); EOSINOPHILS PERCENT AUTO 5 % (0-6); Hematocrit 34.8 % (33.0-51.0); Hemoglobin 11.8 g/dL (11.5-16.0); IMMATURE GRAN ABSOLUTE AUTO 0.02 K/mm3 (0.00-0.10); IMMATURE GRAN PERCENT AUTO 0 % (0-1); LYMPHOCYTES ABSOLUTE AUTO 2.24 K/mm3 (0.84-5.20); LYMPHOCYTES PERCENT AUTO 37 % (21-46); MONOCYTES ABSOLUTE AUTO 0.54 K/mm3 (0.16-1.47); MONOCYTES PERCENT AUTO 9 % (4-13); Mean Corpuscular HGB 31.1 pg (26.0-34.0); Mean Corpuscular HGB Conc 33.9 g/dL (31.5-36.5); Mean Corpuscular Volume 92 fL (80-100); Mean Platelet Volume 10.8 fL (9.1-12.4); NEUTROPHILS ABSOLUTE AUTO 2.97 K/mm3 (1.96-9.15); NEUTROPHILS PERCENT AUTO 49 % (41-73); Platelet Count 192 K/mm3 (150-400); RDW Coefficient Variation 12.7 % (11.7-14.2); Red Blood Cell Count 3.79 M/mm3 (3.80-5.20)
[2024-09-16 05:53] LABS: Albumin, Blood 3.1 g/dL (3.4-5.0); Bilirubin, Total 0.2 mg/dL (0.1-1.0); Bun/Creatinine Ratio 25.1 (12.0-20.0); Calcium, Blood 9.4 mg/dL (8.5-10.1); Creatinine, Blood 0.88 mg/dL (0.40-1.00); Total Protein, Blood 6.1 g/dL (6.4-8.2)
[2024-09-16 07:44] VITALS: BP 172/90
[2024-09-16] MEDS ORDERED: PrednisoLONE 1% Opth Susp 5 ML LEFTEYE SCH (09:00)
[2024-09-16] MEDS ORDERED: ASPIR 8181 M1 PO (10:44)
[2024-09-16] MEDS ORDERED: CEFP200 PO (10:44)
[2024-09-16] MEDS ORDERED: MELATONIN 5 MG1 EACH PO (10:45)
[2024-09-16] MEDS ORDERED: [UNRECOGNIZED DRUG - OTHER] PO (10:46)
--- NOTE | 2024-09-16 12:52 | NUR ---
PT DISCHARGED HOME. PT EDUCATED ON DISCHARGE INSTRUCTIONS BY HUNTER [facility]. PT ESCOTED TO POV BY [facility]. PT PACKED BELONGINGS.
== END 2024-09-16 11:37 | disposition home or self-care (01) ==
LOC: ER 15:30 → ERHOLD 15:31 → MEDS 09-15 12:34 → ENPENDDIS 09-16 11:14 → MEDS 09-16 11:37
PROVIDERS: Emergency Medicine; Family Medicine; Student in an Organized Health Care Education/Training Program; ADMIT Student in an Organized Health Care Education/Training Program
DX: G45.9 Transient cerebral ischemic attack, unspecified (principal); I10 Essential (primary) hypertension; N39.0 Urinary tract infection, site not specified; E03.9 Hypothyroidism, unspecified; E78.5 Hyperlipidemia, unspecified; E11.9 Type 2 diabetes mellitus without complications; Z79.899 Other long term (current) drug therapy; Z94.7 Corneal transplant status
CPT/HCPCS: 36415; 70450; 70496; 70498; 70551; 80053; 80061; 81001; 82947; 83036; 83735; 84100; 85025; 87077; 87086; 87186; 93005; 93010; 93306; 96361; 96365-59; 96366; 96368; 96375; 96375-59; 99285-25; A9270; G0378; J0696; J1200; J1885; J2060; J2765; J3475; J7030; J7050; Q9967

== ENCOUNTER → 2025-02-15 | Outpatient (CLI) | payer MEDICARE ==
[~2025-02-15] MED LIST changes: +ASPIR 8181 M1 PO; +CEFP200 PO; +MELATONIN 5 MG1 EACH PO; +ZIRGAN5 GM BOTHEYES; +[UNRECOGNIZED DRUG - OTHER] PO
[2025-02-15 21:07] LABS: Microalb/Creat Ratio UR, Rand 14.471 mg/g (0.000-30.000); Microalbumin, Random Urine 30.1 mg/L (0.000-20.000)
== END ==
LOC: LAB 17:44 → LAB SHORT 17:44
PROVIDERS: Internal Medicine
DX: E11.21 Type 2 diabetes mellitus with diabetic nephropathy (principal); N18.31 Chronic kidney disease, stage 3a; E11.22 Type 2 diabetes mellitus with diabetic chronic kidney disease
CPT/HCPCS: 82043; 82570